=== PATIENT | female | born 1995 | race Caucasian/White ===

== ENCOUNTER 2019-09-04 17:36 | Emergency (ER) | payer OTHER, SELFPAY ==
[2019-09-04 17:46] VITALS: BP 122/92; PULSE 80; RESP 18; TEMP 36.6; O2SAT 99; BMI 35.5
--- NOTE | 2019-09-04 18:26 | DI.US.S_ITS ---
PROCEDURE: US PELVIC COMPLETE INDICATIONS: SEVERE RIGHT LOWER QUADRANT PAIN TECHNIQUE: Real-time scanning was performed of the pelvic organs, with image documentation. Additional endovaginal scanning was necessary due to incomplete visualization of the adnexal and endometrial structures by transabdominal scanning. COMPARISON: None. FINDINGS: Transabdominal scanning: Limited evaluation of bilateral kidneys shows right kidney measures 12.7 cm in length and left kidney measures 11.9 cm in length. There is severe right-sided hydronephrosis and proximal hydroureter with multiple nonobstructing right-sided renal calculi measures up to 9 mm in size. 5 mm stone is seen in distal right ureter approximately 3.5 cm from UVJ. Urinary bladder is partially distended and shows no gross abnormality. Left kidney show no hydronephrosis or renal stone. No pathologic free abdominal or pelvic fluid. Endovaginal scanning: Uterus: Uterus is normal in size at 6.8 x 3.8 x 5.3 cm. The endometrium measures 12 mm in combined thickness. No gross endometrial mass or fluid. Intrauterine device is noted in its normal central endometrial location. No discrete uterine fibroid is seen. Ovaries: Right ovary measures 2.4 x 2 x 2.1 cm in size and is within normal limits. Left ovary measures 4 x 1.7 x 1.8 cm in size and is within normal limits. IMPRESSION: 1. Normal-appearing uterus and bilateral ovaries. Intrauterine device is in place. 2. Moderate to severe right-sided hydronephrosis and hydroureter with suggestion of a 5 mm right distal ureteral stone as above. No left-sided hydronephrosis. Nonobstructing right renal calculi. Dictated by: Gurmeet Richards M.D. on 09/04/2019 at 20:11 Approved by: Gurmeet Richards M.D. on 09/04/2019 at 20:16
[2019-09-04 18:57] LABS: Bacteria Urine Many (>30); Culture Indicated Urine Specimen Cultured; RBC Urine 5-10/HPF (0-5/HPF); Squamous Epithelial Cell Urine 1-5 /HPF (0-5/HPF); Transitional Epi Cells Urine 5-10/HPF (0-5/HPF); WBC Urine 10-30/HPF (0-5/HPF)
--- NOTE | 2019-09-04 19:22 | ED_ITS ---
HPI - Abdominal Pain General Chief Complaint: Abdominal Pain Stated Complaint: abd/back pain, right side-susp. appendicitis Time Seen by Provider: 09/04/19 17:58 Source: patient Mode of arrival: Family Vehicle Limitations: no limitations History of Present Illness HPI narrative: 23-year-old female nonsmoker presents with family in the chief complaint of severe right lower quadrant pain. She has had the pain for the past few days and was seen at an outside facility with of large, thorough evaluation including CT scan with visualized, normal appendix. She did a bit better on Thursday during the day but then has gradually worsened since then. She states that the pain in her right lower quadrant seems to radiate to her back and is worse with any movement, stating the car ride in was quite painful. She denies dysuria, frequency or urgency. She denies any vaginal bleeding or discharge. She denies any chance of being and has a Mirena in place. She has been nauseated but denies any fever. MD complaint: abdominal pain Onset (ago): day(s) Pain Consistency: constant Location: RLQ Severity: moderate Quality: cramping and aching Radiation: R flank Related Data Previous Rx's Medication Instructions Recorded cephalexin [Keflex] 500 mg PO QID 7 Days #28 cap 09/04/19 hydrocodone-acetaminophen 1 tab PO Q4-6H PRN #10 tab 09/04/19 ketorolac 10 mg PO Q6H PRN #14 tab 09/04/19 ondansetron 4 mg PO TID-QID PRN #10 tab 09/04/19 tamsulosin [Flomax] 0.4 mg PO DAILY #10 cap 09/04/19 Allergies Allergy/AdvReac Type Severity Reaction Status Date / Time No Known Drug Allergies Allergy Verified 09/04/19 18:10 Review of Systems Constitutional Constitutional: Denies chills, Denies fatigue, Denies fever(s), Denies frequent falls, Denies lethargy and Denies weakness Eyes Eyes: Denies change in vision, Denies eye discharge, Denies irritation and Denies loss of vision ENT Ears, Nose, Mouth, and Throat: Denies change in voice, Denies dizziness, Denies neck pain, Denies sore throat and Denies throat swelling Cardiovascular Cardiovascular: Denies chest pain, Denies irregular heart rhythm, Denies lightheadedness, Denies palpitations, Denies dyspnea, Denies dyspnea on exertion and Denies orthopnea Respiratory Respiratory: Denies cough, Denies dyspnea, Denies dyspnea on exertion and Denies wheezing Gastrointestinal Gastrointestinal: Denies abdominal pain, Denies change in bowel habits, Denies diarrhea, Denies nausea and Denies vomiting Genitourinary Genitourinary: Denies hematuria, Denies flank pain, Denies urinary incontinence and Denies urinary urgency Musculoskeletal Musculoskeletal: Denies back pain, Denies muscle weakness, Denies neck pain, Denies numbness and Denies tingling Integumentary/Breasts Skin/Breast: Denies pruritus, Denies erythema, Denies rash and Denies wounds Neurologic Neurologic: Denies behavioral changes, Denies confusion, Denies dizziness, Denies frequent falls, Denies loss of vision, Denies numbness, Denies tingling and Denies weakness Psychiatric Psychiatric: Denies anxiety, Denies behavioral changes, Denies confusion, Denies depression, Denies homicidal ideation and Denies suicidal ideation Endocrine Endocrine: Denies fatigue, Denies flushing and Denies palpitations Hematologic/Lymphatic Hematologic/Lymphatic: Denies easy bruising Allergic/Immunologic Allergic/Immunologic: Denies urticaria, Denies throat swelling and Denies wheezing Patient History Social History Smoking Status: Never smoker Smoking Status: Never smoker alcohol intake frequency: holidays/special occasions only Substance Use Type: does not use Exam Narrative Exam Narrative: GENERAL: [23] year old patient appears stated age. Well- nourished, well-developed patient, in mild distress. HEAD: Atraumatic. Normocephalic. EYES: Pupils equal round and reactive. Extraocular motions intact. No scleral icterus. No injection or drainage. ENT: Nose without bleeding, purulent drainage. Throat without erythema, tonsillar hypertrophy or exudate. Airway patent. NECK: Trachea midline. Non tender CARDIOVASCULAR: Regular rate and rhythm without murmurs, gallops, or rubs. RESPIRATORY: Clear to auscultation. Breath sounds equal bilaterally. No wheezes, rales, or rhonchi. GASTROINTESTINAL: Abdomen soft, right lower quadrant tender palpable, nondistended. EXTREMITIES: No edema or joint tenderness. BACK: Nontender without deformity or crepitance. No flank tenderness. NEURO: AOx3. SKIN: No rash or erythema of visible areas Initial Vital Signs Initial Vital Signs: Vital Signs Temperature 97.9 F 09/04/19 17:46 Pulse Rate 80 09/04/19 17:46 Respiratory Rate 18 09/04/19 17:46 Blood Pressure 122/92 H 09/04/19 17:46 Pulse Oximetry 99 09/04/19 17:46 Course Orders Ordered: ED Orders 09/04/19 18:26 US pelvic complete Stat 09/04/19 18:30 Urine Culture Stat Urine Microscopic Stat 09/04/19 19:55 Complete Blood Count AUTO DIFF Stat Comprehensive Metabolic Panel Stat Lipase Stat Partial Thromboplastin Time Stat Prothrombin Time INR Stat Discontinued Medications Hydrocodone Bitart/Acetaminophen (Vicodin 5/325 Prepack) 1 bottle MISC SEEINSTR ONE Stop: 09/04/19 20:52 Last Admin: 09/04/19 21:07 Dose: 1 bottle Documented by: DEBRA Cefazolin Sodium (Keflex 250 Mg Prepack) 1 bottle MISC SEEINSTR ONE Stop: 09/04/19 20:52 Last Admin: 09/04/19 21:07 Dose: 1 bottle Documented by: DEBRA Sodium Chloride (Normal Saline 0.9%) 1,000 mls @ 1,000 mls/hr IV BOLUS ONE Stop: 09/04/19 19:25 Last Infusion: 09/04/19 21:00 Dose: 0 mls/hr Documented by: Admin: 09/04/19 20:00 Dose: 1,000 mls/hr Documented by: DEBRA Ketorolac Tromethamine (Toradol) 60 mg IM NOW ONE Stop: 09/04/19 19:33 Last Admin: 09/04/19 19:57 Dose: Not Given Documented by: MINH Ketorolac Tromethamine (Toradol) 15 mg IV NOW ONE Stop: 09/04/19 19:59 Last Admin: 09/04/19 20:00 Dose: 15 mg Documented by: DEBRA Ondansetron HCl (Zofran) 4 mg IV Q4HR PRN PRN Reason: Nausea And Vomiting Last Admin: 09/04/19 20:00 Dose: 4 mg Documented by: DEBRA Ondansetron HCl (Zofran Odt Prepack) 1 bottle MISC SEEINSTR ONE Stop: 09/04/19 20:52 Last Admin: 09/04/19 21:07 Dose: 1 bottle Documented by: DEBRA Vital Signs Vital signs: Vital Signs - 8 hr 09/04/19 20:30 09/04/19 21:22 Pulse Rate 76 82 Respiratory Rate 18 18 Blood Pressure 123/75 Blood Pressure [Right Arm] 125/79 Pulse Oximetry 99 96 MDM - Abdominal Pain Lab Data Result diagrams: 09/04/19 19:55 09/04/19 19:55 Labs: Lab Results 09/04/19 09/04/19 09/04/19 Range/Units 18:30 19:55 19:55 WBC 10.5 (4.5-11.0) X10^3/uL RBC 4.95 (4.0-5.2) X10^6/uL Hgb 15.3 (12.0-16.0) g/dL Hct 44.8 (36-46) % MCV 90.4 (80-100) fL MCH 30.9 (26-34) PG MCHC 34.2 (30-36) % RDW 12.9 (11.6-14.8) % Plt Count 172 (150-400) X10^3/uL Neut % (Auto) 74.6 (50-75) % Lymph % (Auto) 17.8 L (25-40) % [place] % (Auto) 6.2 (3-14) % Eos % (Auto) 0.9 L (2-4) % Baso % (Auto) 0.5 (0-2) % Neut # (Auto) 7800 H (8437-9133) /uL Lymph # (Auto) 1900 (4705-1823) /uL [place] # (Auto) 700 (0-900) /uL Eos # (Auto) 100 (0-450) /uL Baso # (Auto) 100 (0-100) /uL PT 12.3 (10.1-12.7) SECONDS INR 1.1 (0.9-1.3) APTT 31 (26.4-36.2) SECONDS Sodium (137-145) mmol/L Potassium (3.4-5.1) mmol/L Chloride (98-107) mmol/L Carbon Dioxide (22-32) mmol/L BUN (7-17) mg/dL Creatinine (0.52-1.04) mg/dL Estimated GFR (>60) mL/min BUN/Creatinine Ratio (6-22) Glucose (70-100) mg/dL Calcium (8.4-10.2) mg/dL Total Bilirubin (0.2-1.3) mg/dL AST (14-36) IU/L ALT (<35) IU/L Alkaline Phosphatase (38-126) U/L Total Protein (6.3-8.2) g/dL Albumin (3.5-5.0) g/dL Globulin (1.7-4.1) g/dL Albumin/Globulin Ratio (1.0-2.8) Lipase (23-300) U/L Urine RBC 5-10/hpf H (0-5/HPF) Urine WBC 10-30/hpf H (0-5/HPF) Ur Squamous Epith Cells 1-5 /hpf (0-5/HPF) Ur Transition Epith Cell 5-10/hpf H (0-5/HPF) Urine Bacteria Many (>30) H (None) Ur Culture Indicated? Specimen cultured 09/04/19 Range/Units 19:55 WBC (4.5-11.0) X10^3/uL RBC (4.0-5.2) X10^6/uL Hgb (12.0-16.0) g/dL Hct (36-46) % MCV (80-100) fL MCH (26-34) PG MCHC (30-36) % RDW (11.6-14.8) % Plt Count (150-400) X10^3/uL Neut % (Auto) (50-75) % Lymph % (Auto) (25-40) % [place] % (Auto) (3-14) % Eos % (Auto) (2-4) % Baso % (Auto) (0-2) % Neut # (Auto) (9291-2022) /uL Lymph # (Auto) (9694-0456) /uL [place] # (Auto) (0-900) /uL Eos # (Auto) (0-450) /uL Baso # (Auto) (0-100) /uL PT (10.1-12.7) SECONDS INR (0.9-1.3) APTT (26.4-36.2) SECONDS Sodium 144 (137-145) mmol/L Potassium 3.9 (3.4-5.1) mmol/L Chloride 109 H (98-107) mmol/L Carbon Dioxide 25 (22-32) mmol/L BUN 8 (7-17) mg/dL Creatinine 1.00 (0.52-1.04) mg/dL Estimated GFR > 60.0 (>60) mL/min BUN/Creatinine Ratio 8.0 (6-22) Glucose 112 H (70-100) mg/dL Calcium 9.5 (8.4-10.2) mg/dL Total Bilirubin 1.0 (0.2-1.3) mg/dL AST 43 H (14-36) IU/L ALT 44 H (<35) IU/L Alkaline Phosphatase 81 (38-126) U/L Total Protein 8.0 (6.3-8.2) g/dL Albumin 4.4 (3.5-5.0) g/dL Globulin 3.6 (1.7-4.1) g/dL Albumin/Globulin Ratio 1.2 (1.0-2.8) Lipase 73 (23-300) U/L Urine RBC (0-5/HPF) Urine WBC (0-5/HPF) Ur Squamous Epith Cells (0-5/HPF) Ur Transition Epith Cell (0-5/HPF) Urine Bacteria (None) Ur Culture Indicated? Point of care testing: Point of Care Testing Test Results Negative Urine Dip Bedside Urine Glucose Negative Bedside Urine Bilirubin + 1 Bedside Urine Ketone +/- 5 Urine Specific [place] 1.020 Bedside Urine Occult Blood + Bedside Urine pH 6.0 Bedside Urine Protein + 30 Bedside Urine Urobilinogen 1+ 2mg Bedside Urine Nitrite + Positive Bedside Urine Leukocytes + 70 Esterase Imaging Data US - OB: Radiologist's Impression: [place] [address] Ultrasound Report Signed Patient: Marybeth Llanos [facility]#: [id number] : 1995Acct:[id number] Age/Sex: 23 / FDate of Service: 09/04/19 Loc: ED Accession Number: [id number] Procedure: US pelvic complete Ordering Provider: Charlie Hadley D.O. PROCEDURE: US PELVIC COMPLETE INDICATIONS: SEVERE RIGHT LOWER QUADRANT PAIN TECHNIQUE: Real-time scanning was performed of the pelvic organs, with image documentation. Additional endovaginal scanning was necessary due to incomplete visualization of the adnexal and endometrial structures by transabdominal scanning. COMPARISON: None. FINDINGS: Transabdominal scanning: Limited evaluation of bilateral kidneys shows right kidney measures 12.7 cm in length and left kidney measures 11.9 cm in length. There is severe right-sided hydronephrosis and proximal hydroureter with multiple nonobstructing right-sided renal calculi measures up to 9 mm in size. 5 mm stone is seen in distal right ureter approximately 3.5 cm from UVJ. Urinary bladder is partially distended and shows no gross abnormality. Left kidney show no hydronephrosis or renal stone. No pathologic free abdominal or pelvic fluid. Endovaginal scanning: Uterus: Uterus is normal in size at 6.8 x 3.8 x 5.3 cm. The endometrium me asures 12 mm in combined thickness. No gross endometrial mass or fluid. Intrauterine device is noted in its normal central endometrial location. No discrete uterine fibroid is seen. Ovaries: Right ovary measures 2.4 x 2 x 2.1 cm in size and is within normal limits. Left ovary measures 4 x 1.7 x 1.8 cm in size and is within normal limits. IMPRESSION: 1. Normal-appearing uterus and bilateral ovaries. Intrauterine device is in place. 2. Moderate to severe right-sided hydronephrosis and hydroureter with suggestion of a 5 mm right distal ureteral stone as above. No left-sided hydronephrosis. Nonobstructing right renal calculi. Dictated by: Gurmeet Richards M.D. on 09/04/2019 at 20:11 Approved by: Gurmeet Richards M.D. on 09/04/2019 at 20:16 Discharge Plan Departure Patient Disposition: Home Clinical Impression: Calculus of kidney UTI (urinary tract infection) Qualifiers: Urinary tract infection type: site unspecified Hematuria presence: without hematuria Qualified Code(s): N39.0 - Urinary tract infection, site not specified Discharge Date/Time: 09/04/19 21:22 Instructions: DI for Kidney Stones, DI for Urinary Tract Infection (UTI) Activity Restrictions/Additional Instructions: *You have been diagnosed with [acute right-sided kidney stone with urinary tract infection] *What to do: *Take medications as directed *Follow up with your primary care provider in 2-3 days, call for an appointment. Let them know you were seen in the Emergency Department and that we ask that you be seen in follow up *Return to ER if you should have any new, worsening or concerning symptoms Prescriptions: New hydrocodone-acetaminophen 5-325 mg tablet 1 tab PO Q4-6H PRN (Reason: pain) Qty: 10 RF: 0 ketorolac 10 mg tablet 10 mg PO Q6H PRN (Reason: pain) Qty: 14 RF: 0 tamsulosin [Flomax] 0.4 mg capsule 0.4 mg PO DAILY Qty: 10 RF: 0 cephalexin [Keflex] 500 mg capsule 500 mg PO QID 7 Days Qty: 28 RF: 0 ondansetron 4 mg tablet,disintegrating 4 mg PO TID-QID PRN (Reason: nausea and vomiting) Qty: 10 RF: 0 Referrals: Cindy Vang MD [Non-Staff] - Stand Alone Forms: Work Release Note
[2019-09-04] MEDS: ONDANSETRON 4 MG/2 ML INJ IV (20:00)
[2019-09-04] MEDS: KETOROLAC 60 MG/2 ML VIAL 15 MG IV (20:00)
[2019-09-04] MEDS: SODIUM CHLORIDE 0.9% 1,000 ML 1000 ML IV (20:00)
[2019-09-04 20:01] LABS: Add Manual Diff / Slide Review NO; Basophils Absolute Auto 100 /uL (0-100); Basophils Percent Auto 0.5 % (0-2); Eosinophils Absolute Auto 100 /uL (0-450); Eosinophils Percent Auto 0.9 % (2-4); Hematocrit 44.8 % (36-46); Hemoglobin 15.3 g/dL (12.0-16.0); Lymphocytes Absolute Auto 1900 /uL (1100-4500); Lymphocytes Percent Auto 17.8 % (25-40); Mean Corpuscular HGB Conc 34.2 % (30-36); Mean Corpuscular Hemoglobin 30.9 PG (26-34); Mean Corpuscular Volume 90.4 fL (80-100); Monocytes Absolute Auto 700 /uL (0-900); Monocytes Percent Auto 6.2 % (3-14); Neutrophils Absolute Auto 7800 /uL (1500-7000); Neutrophils Percent Auto 74.6 % (50-75); Platelet Count 172 X10^3/uL (150-400); Red Blood Cell Count 4.95 X10^6/uL (4.0-5.2); Red Cell Distribution Width 12.9 % (11.6-14.8); White Blood Cell Count 10.5 X10^3/uL (4.5-11.0)
[2019-09-04 20:12] LABS: INR 1.1 (0.9-1.3); Prothrombin Time 12.3 SECONDS (10.1-12.7)
[2019-09-04 20:15] LABS: PTT Partial Thromboplastin Tim 31 SECONDS (26.4-36.2)
[2019-09-04 20:17] LABS: Alanine Aminotransferase 44 IU/L (<35); Albumin 4.4 g/dL (3.5-5.0); Albumin Globulin Ratio 1.2 (1.0-2.8); Alkaline Phosphatase 81 U/L (38-126); Aspartate Aminotransferase 43 IU/L (14-36); Blood Urea Nitrogen 8 mg/dL (7-17); Calcium 9.5 mg/dL (8.4-10.2); Carbon Dioxide 25 mmol/L (22-32); Chloride 109 mmol/L (98-107); Estimated Glomerular Filt Rate > 60.0 mL/min (>60); Globulin 3.6 g/dL (1.7-4.1); Glucose 112 mg/dL (70-100); HEMOLYSIS < 15 (0-50); Lipase 73 U/L (23-300); Potassium 3.9 mmol/L (3.4-5.1); Sodium 144 mmol/L (137-145)
[2019-09-04 20:30] VITALS: BP 125/79; PULSE 76; RESP 18; O2SAT 99
[2019-09-04] MEDS: ONDANSETRON 4 MG ODT PREPACK 1 BOTTLE MISC (21:07)
[2019-09-04] MEDS: cephALEXin 250 MG PREPACK 1 BOTTLE MISC (21:07)
[2019-09-04] MEDS: HYDROCODONE/ACET 5/325 PREPACK 1 BOTTLE MISC (21:07)
[2019-09-04 21:22] VITALS: BP 123/75; PULSE 82; RESP 18; O2SAT 96
--- NOTE | 2019-09-04 21:29 | PC.NURSE ---
flomax called into pharmacy because the prescription did not print. patient left ed with prescriptions of ketorolac, zofran, and keflex along with prepacks of keflex, zofran and norco. provider aware and no new orders at this time.
== END 2019-09-04 21:22 | disposition home or self-care (01) ==
PROVIDERS: Emergency Provider Emergency Medicine
DX: N20.0 Calculus of kidney (principal); N39.0 Urinary tract infection, site not specified; R11.0 Nausea
CPT/HCPCS: 36415; 76856; 80053; 81003; 81015; 81025; 83690; 85025; 85610; 85730; 87077; 87086; 87186; 96361; 96374; 96375; 99284; J1885; J2405

== ENCOUNTER → 2020-03-29 09:14 | Outpatient (CLI) | payer OTHER, SELFPAY ==
--- NOTE | 2020-03-29 | DI.US.S_ITS ---
PROCEDURE: US RENAL COMPLETE INDICATIONS: HISTORY OF NEPHROLITHIASIS AND URETEROLITHIASIS TECHNIQUE: Real-time scanning was performed of the kidneys and bladder, with image documentation. COMPARISON: Outside Film, CT, CT ABDOMEN PELVIS WITHOUT CONTRAST, 03/12/2020, 18:04. FINDINGS: Kidneys: Kidneys are normal in size. Right kidney measures 10.8 cm long; left kidney measures 11.5 cm long. Right renal cortical thickness is 1.1 cm; left renal cortical thickness is 1.4 cm. Renal cortical echotexture is normal. No hydronephrosis. Multiple shadowing echogenic foci are present within the right renal pelvis suggesting non-obstructing calculi. Bladder: Pre-void bladder volume is 177.6 mL. Post-void residual is 5.9 mL. Pre-void images demonstrate no intraluminal masses or stones. On pre-void images, bilateral ureteral jets are noted with color Doppler interrogation. (Of note, ureteral jets may not be detectable in up to 25% of cases due to insufficient differences in specific gravity between ureteral and bladder urine). Miscellaneous: No free pelvic fluid. IMPRESSION: 1. Nonobstructing right nephrolithiasis. No hydronephrosis. 2. No significant postvoid residual. Dictated by: Yu Gagnon M.D. on 03/29/2020 at 12:00 Approved by: Yu Gagnon M.D. on 03/29/2020 at 12:02
== END ==
PROVIDERS: PCP Nurse Practitioner Family; Referring Provider Urology; Visit Provider Urology
DX: N20.0 Calculus of kidney (principal); Z87.442 Personal history of urinary calculi
CPT/HCPCS: 76770

== ENCOUNTER 2022-09-27 14:32 | Emergency (ER) | payer OTHER, SELFPAY ==
[2022-09-27 14:39] VITALS: BP 150/98; PULSE 101; RESP 16; TEMP 36.6; O2SAT 98; BMI 36.0
--- NOTE | 2022-09-27 15:14 | ED.ABDPAIN ---
HPI - Abdominal Pain <Didi Deshpande PA-C - Last Filed: 09/27/22 16:56> General Chief Complaint: Abdominal Pain Stated Complaint: groin pain Time Seen by Provider: 09/27/22 15:04 Mode of arrival: Family Vehicle History of Present Illness HPI narrative: Patient is a 26-year-old female presenting for evaluation of left groin pain starting abruptly this morning. She says that the pain at that time was a 7/10. She denies it radiating anywhere. She denies back pain, body aches, chills, vomiting. She does endorse some nausea. Of note, 2 weeks ago she developed abnormal bleeding nausea vomiting and abdominal pain, reported for evaluation at the hospital and was diagnosed via ultrasound of the IUD implanted into her uterus. She says that on the , she had it removed, had STI testing Pap smear, and had a new IUD placed. She says that she felt pain for the next several days which then improved. She denies any vaginal bleeding at this time or abnormal vaginal discharge. She does note a tingling sensation at her urethra which is present regardless of whether she pees or not. She says it reminds her of ?lightening crotch? when she was . She says this pain is somewhat reminiscent of when the IUD was implanted in her uterine 2 weeks earlier. She does report also a history of kidney stones back in 2019. She was treated with lithotripsy for this. She notes that she was recently diagnosed with a large kidney stone in her kidney. Related Data Previous Rx's Medication Instructions Recorded hydrocodone 5 mg-acetaminophen 325 1 tab PO Q4-6H PRN pain #10 tabs 09/04/19 mg tablet ketorolac 10 mg tablet 10 mg PO Q6H PRN pain #14 tabs 09/04/19 ondansetron 4 mg disintegrating 4 mg PO TID-QID PRN nausea and 09/04/19 tablet vomiting #10 tabs tamsulosin 0.4 mg capsule (Flomax) 0.4 mg PO DAILY #10 caps 09/04/19 Allergies Allergy/AdvReac Type Severity Reaction Status Date / Time No Known Drug Allergies Allergy Verified 09/27/22 14:41 Review of Systems <Didi Deshpande PA-C - Last Filed: 09/27/22 16:56> Review of Systems Narrative: per HPI Patient History <Didi Deshpaned PA-C - Last Filed: 09/27/22 16:56> Social History Smoking Status: Never smoker Smoking Status: Never smoker alcohol intake frequency: holidays/special occasions only Substance Use Type: does not use Exam <Didi Deshpande PA-C - Last Filed: 09/27/22 16:56> Narrative Exam Narrative: GENERAL: 26 year old patient appears stated age. Well-developed patient, in no acute distress. HEAD: Atraumatic. Normocephalic. EYES: Pupils equal round and reactive. No scleral icterus. No injection or drainage. CARDIOVASCULAR: Regular rate and rhythm without murmurs, gallops, or rubs. RESPIRATORY: Clear to auscultation. Breath sounds equal bilaterally. No wheezes, rales, or rhonchi. GASTROINTESTINAL: Bowel sounds present x4, tympanic to percussion all 4 quadrants, tender to light palpation over suprapubic area. No right lower quadrant tenderness, some ?quadrant tenderness EXTREMITIES: No edema or joint tenderness. BACK: Nontender without deformity or crepitance. No flank tenderness. No CVA tenderness NEURO: AOx3. SKIN: No rash or erythema of visible areas Drill Press Tender: ISREAL Johnson present as music ministries director. No inguinal lymphadenopathy, no lesions noted over the labia, no abnormal discharge or abnormal smell. No blood noted on exam. Cervix is without blemish and IUD strings are visualized. About 2 cm of strings are seen. Initial Vital Signs Initial Vital Signs: Vital Signs Temperature 97.9 F 09/27/22 14:39 Pulse Rate 101 H 09/27/22 14:39 Respiratory Rate 16 09/27/22 14:39 Blood Pressure 150/98 H 09/27/22 14:39 Pulse Oximetry 98 09/27/22 14:39 Oxygen Delivery Method Room Air 09/27/22 14:39 <Sofia Calero DO - Last Filed: 09/28/22 07:23> Initial Vital Signs Initial Vital Signs: Vital Signs Temperature 97.9 F 09/27/22 14:39 Pulse Rate 101 H 09/27/22 14:39 Respiratory Rate 16 09/27/22 14:39 Blood Pressure 150/98 H 09/27/22 14:39 Pulse Oximetry 98 09/27/22 14:39 Oxygen Delivery Method Room Air 09/27/22 14:39 Course <Didi Deshpande PA-C - Last Filed: 09/27/22 16:56> Orders Ordered: Discontinued Medications Ketorolac Tromethamine (Ketorolac 30 Mg/Ml Vial) 30 mg IM NOW ONE Stop: 09/27/22 16:10 Last Admin: 09/27/22 16:16 Dose: 30 mg Documented By: AT Vital Signs Vital signs: Vital Signs - 8 hr 09/27/22 14:39 09/27/22 16:47 Temperature 97.9 F Pulse Rate 101 H 96 H Respiratory Rate 16 16 Blood Pressure 150/98 H 153/92 H Pulse Oximetry 98 98 Oxygen Delivery Method Room Air Room Air <Sofia Calero DO - Last Filed: 09/28/22 07:23> Orders Ordered: Discontinued Medications Ketorolac Tromethamine (Ketorolac 30 Mg/Ml Vial) 30 mg IM NOW ONE Stop: 09/27/22 16:10 Last Admin: 09/27/22 16:16 Dose: 30 mg Documented By: AT Vital Signs Vital signs: Vital Signs - 8 hr 09/27/22 14:39 09/27/22 16:47 Temperature 97.9 F Pulse Rate 101 H 96 H Respiratory Rate 16 16 Blood Pressure 150/98 H 153/92 H Pulse Oximetry 98 98 Oxygen Delivery Method Room Air Room Air MDM - Abdominal Pain <Didi Deshpande PA-C - Last Filed: 09/27/22 16:56> Medical Records Medical records narrative: CC: This is a new problem, uncertain diagnosis possible systemic effects. Complicating co-morbidities: Recent IUD implantation into uterine wall 2 weeks ago. Corroborating data: Data collected from: patient, Social determinants of health that may influence the patients condition: Medical records reviewed: Differential: IUD implanted in uterine wall, UTI, STD, kidney stone, ovary torsion, ovarian cyst. Exam documented above, pertinent findings include: Lower abdominal pain to palpation. Normal appearing vaginal exam. Lab Test results independently reviewed as above. Pertinent findings: UA showed leukocytes and blood, sample sent for culture. Imaging studies independently reviewed: Consultations: Discussed case with Dr. Calero. Treatments: Re-evaluations: Some increased lower abdominal pain after pelvic ultrasound. 30 mg IM Toradol given. Patient and son also provided with water. Pain improved considerably with Toradol treatment. Discussion: 26-year-old female presenting for right-sided groin pain starting this morning. Incidentally, 2 weeks ago on 09/12/22 she was diagnosed with a IUD implanted into her uterine wall. She received a new IUD on 09/16/2022, as well as received Pap smear and STI testing. She reports some pain after insertion of new IUD, which resolved. Yesterday she noted some tingling sensation in her urethra, then this morning she woke up with severe right groin pain which she described as 7/10. She reports continued tingling sensation in her urethra. She denied any change to her urination, denies frequency or urgency or pain directly related to urination. She denied any abnormal vaginal discharge or bleeding. She reports suprapubic pain. UA did show leukocytes and blood. test was negative. Pelvic ultrasound was done to evaluate placement of IUD. Vaginal exam showed no abnormal discharge and normal cervix. Re-evaluation on exam showed some increasing lower abdominal pain, which was treated with 30 mg IM Toradol. As there is no abnormal vaginal discharge, suspicion of STD and bacterial vaginosis are low. We discussed possible sSuspicion for UTI due to leukocytes, blood and moderate level of bacteria noted on microscopy, however since she is asymptomatic at this time, I recommend she wait on antibiotic treatment until culture results return. Pelvic US showed enlarged complex left cyst which may be hemorrhagic. Recommendation she follow up for repeat ultrasound imaging in 6 weeks to ensure resolution. We did not do blood work today, because she denies body aches, fever, chills, her symptoms were not indicative of UTI and in light of cyst found on ultrasound as a reasonable explanation for her left groin pain, suspicion for kidney stone is low. Disposition: see below, along with detailed discharge instructions that have been reviewed with patient as well as indications for ED re-evaluation and additional outpatient follow up Lab Data Labs: Lab Results 09/27/22 Range/Units 14:49 Urine RBC None seen (0-5/HPF) Urine WBC 10-30/hpf H (0-5/HPF) Ur Squamous Epith Cells 10-30 /hpf H D (0-5/HPF) Amorphous Sediment 2+ Urine Bacteria Moderate (10-30) H (None) Ur Culture Indicated? Specimen cultured Point of care testing: Point of Care Testing Test Results Negative Urine Dip Bedside Urine Glucose Negative Bedside Urine Bilirubin - Negative Bedside Urine Ketone - Negative Urine Specific [place] 1.01 Bedside Urine Occult Blood +/- Bedside Urine pH 8.0 Bedside Urine Protein - Negative Bedside Urine Urobilinogen - Negative Bedside Urine Nitrite - Negative Bedside Urine Leukocytes + 70 Esterase <Sofia Calero, DO - Last Filed: 09/28/22 07:23> Lab Data Labs: Lab Results 09/27/22 Range/Units 14:49 Urine RBC None seen (0-5/HPF) Urine WBC 10-30/hpf H (0-5/HPF) Ur Squamous Epith Cells 10-30 /hpf H D (0-5/HPF) Amorphous Sediment 2+ Urine Bacteria Moderate (10-30) H (None) Ur Culture Indicated? Specimen cultured Point of care testing: Point of Care Testing Test Results Negative Urine Dip Bedside Urine Glucose Negative Bedside Urine Bilirubin - Negative Bedside Urine Ketone - Negative Urine Specific [place] 1.01 Bedside Urine Occult Blood +/- Bedside Urine pH 8.0 Bedside Urine Protein - Negative Bedside Urine Urobilinogen - Negative Bedside Urine Nitrite - Negative Bedside Urine Leukocytes + 70 Esterase Discharge Plan Departure Patient Disposition: Home Clinical Impression: Ovarian cyst Instructions: DI for Ovarian Cyst Activity Restrictions/Additional Instructions: We discussed that pelvic ultrasound showed a cyst on your left side measuring 3.4 x 4.7 x 4.0 x 0.52 which may represent a hemorrhagic cyst. I recommend you follow up with pharmacy service associate for a follow-up pelvic ultrasound in 6 weeks to continue monitoring. You may take ibuprofen or Tylenol for pain. If pain worsens or systemic symptoms worsen and you develop difficulty urinating, or fever, body aches or chills along with abdominal pain, please return for evaluation in the emergency room. Regarding some bacteria seen in urine sample, given that you do not currently have any symptoms of UTI, I recommend waiting for return of culture results to consider starting antibiotic treatment. We will get these results and notify you in 2-3 days. Prescriptions: No Action hydrocodone-acetaminophen 5-325 mg tablet 1 tab PO Q4-6H PRN (Reason: pain) Qty: 10 0RF ketorolac 10 mg tablet 10 mg PO Q6H PRN (Reason: pain) Qty: 14 0RF tamsulosin [Flomax] 0.4 mg capsule 0.4 mg PO DAILY Qty: 10 0RF ondansetron 4 mg tablet,disintegrating 4 mg PO TID-QID PRN (Reason: nausea and vomiting) Qty: 10 0RF Referrals: Norma Deshpande PA-C [Primary Care Provider] - Stand Alone Forms: Patient Portal/API <Sofia Calero DO - Last Filed: 09/28/22 07:23> Cosign ED Attending Roula Attestation: I was immediately available in the department for consultation. Documentation has been reviewed.
--- NOTE | 2022-09-27 15:17 | DI.US.S_ITS ---
PROCEDURE: US PELVIC COMPLETE INDICATIONS: PAIN 10 DAYS POST IUD PLACEMENT TECHNIQUE: Real-time scanning was performed of the pelvic organs, with image documentation. Additional endovaginal scanning was necessary due to incomplete visualization of the adnexal and endometrial structures by transabdominal scanning. COMPARISON: [facility], , US PELVIC COMPLETE WITH TRANSVAGINAL, 09/12/2022, 15:36. [facility], , US PELVIC COMPLETE, 09/04/2019, 19:17. FINDINGS: Uterus: Uterus is anteverted and normal in size at 9.4 x 4.4 x 5.6 cm. The myometrium is homogeneous. The endometrium measures 5-6 mm combined thickness. The IUD is seen at its expected location. Ovaries: The right ovary measures 2.5 x 3.4 x 1.9 cm, with a calculated ovarian volume of 8.7 cc. The left ovary measures 3.4 x 4.7 x 4 cm, with a calculated ovarian volume of 33.3 cc. The left ovary demonstrates a complex nonvascular cyst that measures up to 2.9 cm. Normal appearing arterial waveforms are confirmed to the left ovary. Less than 12 follicles can be seen in each ovary. No adnexal masses are seen. Other: No pathologic free abdominal or pelvic fluid. IMPRESSION: Unremarkable AVD. Complex cyst seen involving the left ovary, which may represent a hemorrhagic cyst. If it would be clinically appropriate, a followup pelvic ultrasound could be considered in 6 weeks to assure resolution/ improvement. We strive to produce accurate, complete, and clear reports of imaging services. To assist us in improving patient care, this report was composed using standard report templates and voice recognition software. Therefore, it may contain abnormal punctuation, insertions and/or omissions. Occasional wrong-word or sound-alike substitutions may occur. Though we review the report and make efforts to correct it, we do recommend that the report be read carefully in proper context to recognize any text inaccuracies. Dictated by: Alex Damon M.D. on 09/27/2022 at 15:21 Approved by: Alex Damon M.D. on 09/27/2022 at 15:24
[2022-09-27 15:20] LABS: Amorphous Sediment Urine 2+; Bacteria Urine Moderate (10-30); Culture Indicated Urine Specimen Cultured; RBC Urine None Seen (0-5/HPF); Squamous Epithelial Cell Urine 10-30 /HPF (0-5/HPF); WBC Urine 10-30/HPF (0-5/HPF)
[2022-09-27] MEDS: KETOROLAC 30 MG/ML VIAL IM (16:16)
[2022-09-27 16:47] VITALS: BP 153/92; PULSE 96; RESP 16; O2SAT 98
== END 2022-09-27 17:00 | disposition home or self-care (01) ==
PROVIDERS: Emergency Medicine; Emergency Provider Physician Assistant; PCP Physician Assistant
DX: N83.202 Unspecified ovarian cyst, left side (principal); R11.2 Nausea with vomiting, unspecified
CPT/HCPCS: 76830; 76856; 81003; 81015; 81025; 87077; 87086; 87147; 93976; 96372; 99284; J1885